=== PATIENT | male | born 1945 | race Caucasian/White ===

== ENCOUNTER 2021-03-10 19:10 | Emergency (ER) | payer BC, MEDICARE ==
[2021-03-10] MEDS ORDERED: Sodium Chloride 0.9% 10 ML Syringe FLUSH PRN (19:47)
[2021-03-10] MEDS ORDERED: Albuterol/Ipratropium 3.0-0.5 MG/3 ML Neb Soln NEB ONE (19:48)
[2021-03-10] MEDS ORDERED: methylPREDNISolone Sodium Succinate 125 MG/2 ML SDV IVPUSH ONE (19:49)
--- NOTE | 2021-03-10 19:55 | EDM.PDOC ---
ED HPI GENERAL MEDICAL PROBLEM - General Chief Complaint: Respiratory Problem Stated Complaint: SOB Time Seen by Provider: 03/10/21 19:37 Source of Information: Reports: Patient History Limitations: Reports: No Limitations - History of Present Illness INITIAL COMMENTS - FREE TEXT/NARRATIVE: The patient presents with shortness of breath, cough and generalized weakness. This started a few days ago. He is traveling through to [place]. He stopped in town today and went to the [facility]. They did a CXR and started him on prednisone, amoxicillin, and doxycycline. They thought he had pneumonia. He got a call back that he did not have pneumonia. His CXR was officially read by their radiologist. He was in his hotel room and he was trying to sleep and his oxygen saturations went down to 83%. They did come up and when he came in they were 95% on room air. He has no fever, chills, cough, chest pain, abdominal pain, nausea or vomiting. He has a history of COPD and myasthenia gravis. The has been under control lately. He says at times he feels weak in his legs. He does have some edema in both legs lately. He was immunized for COVID. He will not do a nasal swab for COVID. Onset: Gradual Duration: Day(s): Severity: Moderate Improves with: Reports: None Worsens with: Reports: None Associated Symptoms: Reports: Shortness of Breath. Denies: Chest Pain, Cough, Fever/Chills, Headaches, Nausea/Vomiting - Related Data Allergies Allergy/AdvReac Type Severity Reaction Status Date / Time azithromycin Allergy Cannot Verified 03/10/21 22:28 [From Zithromax Z-Jacinto] Remember levofloxacin [From Levaquin] Allergy Cannot Verified 03/10/21 22:28 Remember ramipril Allergy Cannot Verified 03/10/21 22:28 Remember Sulfa (Sulfonamide Allergy Cannot Verified 03/10/21 22:28 Antibiotics) Remember ED ROS GENERAL - Review of Systems Review Of Systems: See Below Constitutional: Reports: Weakness. Denies: Fever, Chills HEENT: Reports: No Symptoms Respiratory: Reports: Shortness of Breath. Denies: Cough Cardiovascular: Reports: No Symptoms Endocrine: Reports: No Symptoms GI/Abdominal: Reports: No Symptoms : Reports: No Symptoms Musculoskeletal: Reports: No Symptoms ED EXAM, GENERAL - Physical Exam Exam: See Below Exam Limited By: No Limitations General Appearance: Alert, No Apparent Distress Ears: Normal External Exam Nose: Normal Inspection Head: Atraumatic, Normocephalic Neck: Normal Inspection Respiratory/Chest: No Respiratory Distress, Decreased Breath Sounds Cardiovascular: Regular Rate, Rhythm, No Murmur, Other (Edema in both lower legs) GI/Abdominal: Soft, Non-Tender, No Organomegaly, No Mass Back Exam: Normal Inspection Extremities: Other (Edema both legs) Neurological: Alert, Oriented, No Motor/Sensory Deficits #1 Interpretation EKG Date: 03/10/21 Time: 20:14 Rhythm: A-Fib Rate (Beats/Min): 80 [place]: LAD-Left [place] Deviation P-Wave: Absent QRS: Normal ST-T: Normal QT: Normal Course - Vital Signs Last Recorded V/S: Last Vital Signs Temp 96.8 F L 03/10/21 23:20 Pulse 57 L 03/10/21 23:20 Resp 16 03/10/21 23:20 BP 166/84 H 03/10/21 23:20 Pulse Ox 94 L 03/10/21 23:20 - Orders/Labs/Meds Orders: Active Orders 24 hr Category Date Time Status Cardiac Monitoring [RC] . DIRECTED Care 03/10/21 19:47 Active Peripheral IV Care [RC] . DIRECTED Care 03/10/21 19:48 Active RT Aerosol Therapy [RC] ASDIRECTED Care 03/10/21 19:49 Active Ang Chest [CT] Stat Exams 03/10/21 21:43 Taken Chest 1V Frontal [CR] Stat Exams 03/10/21 19:48 Taken Sodium Chloride 0.9% [Normal Saline] 100 ml Med 03/10/21 22:30 Active IV ASDIRECTED Sodium Chloride 0.9% [Saline Flush] Med 03/10/21 19:47 Active 10 ml FLUSH ASDIRECTED PRN Peripheral IV Insertion Adult [OM.PC] Stat Oth 03/10/21 19:47 Ordered Medication Orders Sodium Chloride (Normal Saline) 100 mls @ 60 mls/hr IV ASDIRECTED BRIAN Last Admin: 03/10/21 22:25 Dose: 60 mls/hr Documented by: SALMA Sodium Chloride (Sodium Chloride 0.9% 10 Ml Syringe) 10 ml FLUSH ASDIRECTED PRN PRN Reason: Keep Vein Open Last Admin: 03/10/21 21:45 Dose: 10 ml Documented by: LIZ Labs: Laboratory Tests 03/10/21 03/10/21 03/10/21 Range/Units 20:45 20:45 20:45 WBC 13.58 H (4.23-9.07) K/mm3 RBC 5.20 (4.63-6.08) M/mm3 Hgb 15.3 (13.7-17.5) gm/dl Hct 48.6 (40.1-51.0) % MCV 93.5 H (79.0-92.2) fl MCH 29.4 (25.7-32.2) pg MCHC 31.5 L (32.2-35.5) g/dl RDW Std Deviation 54.7 H (35.1-43.9) fL Plt Count 217 (163-337) K/mm3 MPV 9.3 L (9.4-12.3) fl Neut % (Auto) 86.2 H (34.0-67.9) % Lymph % (Auto) 5.7 L (21.8-53.1) % [place] % (Auto) 7.5 (5.3-12.2) % Eos % (Auto) 0.1 L (0.8-7.0) Baso % (Auto) 0.1 (0.1-1.2) % Neut # (Auto) 11.71 H (1.78-5.38) K/mm3 Lymph # (Auto) 0.77 L (1.32-3.57) K/mm3 [place] # (Auto) 1.02 H (0.30-0.82) K/mm3 Eos # (Auto) 0.02 L (0.04-0.54) K/mm3 Baso # (Auto) 0.01 (0.01-0.08) K/mm3 D-Dimer, Quantitative 0.64 H (0.19-0.50) mg/L Sodium 140 (136-145) mEq/L Potassium 4.4 (3.5-5.1) mEq/L Chloride 105 (98-107) mEq/L Carbon Dioxide 29 (21-32) mEq/L Anion Gap 10.4 (5-15) BUN 34 H (7-18) mg/dL Creatinine 1.6 H (0.7-1.3) mg/dL Est Cr Clr Drug Dosing 41.19 mL/min Estimated GFR (MDRD) 42 (>60) mL/min BUN/Creatinine Ratio 21.3 H (14-18) Glucose 115 H (70-99) mg/dL Calcium 8.6 (8.5-10.1) mg/dL Total Bilirubin 0.7 (0.2-1.0) mg/dL AST 23 (15-37) U/L ALT 46 (16-63) U/L Alkaline Phosphatase 65 (46-116) U/L Troponin I < 0.017 (0.00-0.056) ng/mL NT-Pro-B Natriuret Pep (0-450) pg/mL Total Protein 6.8 (6.4-8.2) g/dl Albumin 3.4 (3.4-5.0) g/dl Globulin 3.4 gm/dL Albumin/Globulin Ratio 1.0 (1-2) 03/10/21 Range/Units 20:45 WBC (4.23-9.07) K/mm3 RBC (4.63-6.08) M/mm3 Hgb (13.7-17.5) gm/dl Hct (40.1-51.0) % MCV (79.0-92.2) fl MCH (25.7-32.2) pg MCHC (32.2-35.5) g/dl RDW Std Deviation (35.1-43.9) fL Plt Count (163-337) K/mm3 MPV (9.4-12.3) fl Neut % (Auto) (34.0-67.9) % Lymph % (Auto) (21.8-53.1) % [place] % (Auto) (5.3-12.2) % Eos % (Auto) (0.8-7.0) Baso % (Auto) (0.1-1.2) % Neut # (Auto) (1.78-5.38) K/mm3 Lymph # (Auto) (1.32-3.57) K/mm3 [place] # (Auto) (0.30-0.82) K/mm3 Eos # (Auto) (0.04-0.54) K/mm3 Baso # (Auto) (0.01-0.08) K/mm3 D-Dimer, Quantitative (0.19-0.50) mg/L Sodium (136-145) mEq/L Potassium (3.5-5.1) mEq/L Chloride (98-107) mEq/L Carbon Dioxide (21-32) mEq/L Anion Gap (5-15) BUN (7-18) mg/dL Creatinine (0.7-1.3) mg/dL Est Cr Clr Drug Dosing mL/min Estimated GFR (MDRD) (>60) mL/min BUN/Creatinine Ratio (14-18) Glucose (70-99) mg/dL Calcium (8.5-10.1) mg/dL Total Bilirubin (0.2-1.0) mg/dL AST (15-37) U/L ALT (16-63) U/L Alkaline Phosphatase (46-116) U/L Troponin I (0.00-0.056) ng/mL NT-Pro-B Natriuret Pep 563 H (0-450) pg/mL Total Protein (6.4-8.2) g/dl Albumin (3.4-5.0) g/dl Globulin gm/dL Albumin/Globulin Ratio (1-2) Meds: Medications Generic Name Dose Route Start Last Admin Trade Name Freq PRN Reason Stop Dose Admin Sodium Chloride 100 mls @ 60 mls/hr 03/10/21 22:30 03/10/21 22:25 Normal Saline IV 60 mls/hr ASDIRECTED BRIAN Administration Sodium Chloride 10 ml 03/10/21 19:47 03/10/21 21:45 Sodium Chloride 0.9% 10 Ml Syringe FLUSH 10 ml ASDIRECTED PRN Administration Keep Vein Open Discontinued Medications Generic Name Dose Route Start Last Admin Trade Name Freq PRN Reason Stop Dose Admin Albuterol/Ipratropium 3 ml 03/10/21 19:48 03/10/21 20:27 Albuterol/Ipratropium 3.0-0.5 Mg/3 Ml Neb Soln NEB 03/10/21 19:49 3 ml ONETIME ONE Administration Furosemide 40 mg 03/10/21 21:19 03/10/21 21:43 Furosemide 40 Mg/4 Ml Vial IVPUSH 03/10/21 21:20 40 mg NOW ONE Administration Iopamidol 100 ml 03/10/21 22:21 03/10/21 22:25 Iopamidol 755 Mg/Ml 100 Ml Bottle IVPUSH 03/10/21 22:22 100 ml ONETIME ONE Administration Methylprednisolone Sodium Succinate 125 mg 03/10/21 19:49 Methylprednisolone Sodium Succinate 125 Mg/2 Ml Sdv IVPUSH 03/10/21 19:50 ONETIME ONE Sodium Chloride 10 ml 03/10/21 22:21 03/10/21 22:25 Sodium Chloride 0.9% 10 Ml Syringe FLUSH 03/10/21 22:22 10 ml ONETIME ONE Administration - Re-Assessments/Exams Free Text/Narrative Re-Assessment/Exam: 03/10/21 19:58 I ordered an EKG, CXR, IV saline lock, solu-medrol 125mg IV, duoneb, and labs. 03/10/21 23:27 His EKG shows atrial fibrillation with no acute changes. He has a history of A- fib and was on a blood thinner but he came off of it. His WBC was elevated at 13.58. His D-dimer is elevated at 0.64. His creatinine was elevated at 1.6. His troponin is negative. His BNP was elevated at 563. I gave some lasix 40mg IV. The CT shows no evidence for acute pulmonary embolic disease. 6mm left upper lobe pulmonary nodule. Irregular soft tissue attenuation nodule in the right upper lobe. He is aware of the nodules. He has a COPD exacerbation. I will discharge him home and keep on the prednisone. Departure - Departure Time of Disposition: 23:35 Disposition: Home, Self-Care 01 Condition: Good Clinical Impression: COPD (chronic obstructive pulmonary disease) Qualifiers: COPD type: unspecified COPD Qualified Code(s): J44.9 - Chronic obstructive pulmonary disease, unspecified - Discharge Information *PRESCRIPTION DRUG MONITORING PROGRAM REVIEWED*: Not Applicable *COPY OF PRESCRIPTION DRUG MONITORING REPORT IN PATIENT ANGIE: Not Applicable Referrals: PCP,Not In Area [Primary Care Provider] - Forms: ED Department Discharge Additional Instructions: Continue with the prednisone and the treatments. Please return if you are worse. Follow up with your doctor within a week. Sepsis Event Note (ED) - Evaluation Sepsis Screening Result: No Definite Risk - Focused Exam Vital Signs: Vital Signs Temp Pulse Resp BP Pulse Ox Pulse Ox 03/10/21 23:20 96.8 F L 57 L 16 166/84 H 94 L 03/10/21 19:49 95 03/10/21 19:30 97.0 F 87 20 136/87 95 - My Orders Last 24 Hours: My Active Orders 03/10/21 19:47 Cardiac Monitoring [RC] . DIRECTED Sodium Chloride 0.9% [Saline Flush] 10 ml FLUSH ASDIRECTED PRN Peripheral IV Insertion Adult [OM.PC] Stat 03/10/21 19:48 Peripheral IV Care [RC] . DIRECTED Chest 1V Frontal [CR] Stat 03/10/21 19:49 RT Aerosol Therapy [RC] ASDIRECTED 03/10/21 21:43 Ang Chest [CT] Stat 03/10/21 22:30 Sodium Chloride 0.9% [Normal Saline] 100 ml IV ASDIRECTED - Assessment/Plan Last 24 Hours: My Active Orders 03/10/21 19:47 Cardiac Monitoring [RC] . DIRECTED Sodium Chloride 0.9% [Saline Flush] 10 ml FLUSH ASDIRECTED PRN Peripheral IV Insertion Adult [OM.PC] Stat 03/10/21 19:48 Peripheral IV Care [RC] . DIRECTED Chest 1V Frontal [CR] Stat 03/10/21 19:49 RT Aerosol Therapy [RC] ASDIRECTED 03/10/21 21:43 Ang Chest [CT] Stat 03/10/21 22:30 Sodium Chloride 0.9% [Normal Saline] 100 ml IV ASDIRECTED
[2021-03-10] MEDS ORDERED: Furosemide 40 MG/4 ML VIAL IVPUSH ONE (21:19)
[2021-03-10] MEDS ORDERED: Sodium Chloride 0.9% 10 ML Syringe FLUSH ONE (22:21)
[2021-03-10] MEDS ORDERED: Iopamidol 755 Mg/ML 100 ML Bottle IVPUSH ONE (22:21)
[2021-03-10] MEDS ORDERED: Sodium Chloride 0.9% 100 ML IV SCH (22:30)
[2021-03-11] MEDS ORDERED: Albuterol/Ipratropium 3.0-0.5 MG/3 ML Neb Soln NEB ONE (06:09)
--- NOTE | 2021-03-11 06:49 | CR ---
Chest: Frontal view of the chest was obtained utilizing portable technique. Comparison: No prior chest imaging is available. Heart is enlarged. Lung markings are slightly increased which is most likely chronic. Parenchymal density is noted within the right upper chest which is described on subsequent chest CT. No discrete pleural effusions are seen. Bony structures show scattered disc space narrowing within the spine. No acute osseous finding is seen. Impression: 1. Cardiomegaly. 2. Slight increased lung markings most likely chronic. 3. Nodular density within the right upper chest. This has been described on subsequent chest CT. Diagnostic code #3
--- NOTE | 2021-03-11 07:27 | CT ---
CT chest Technique: Multiple axial sections were obtained from above the lung apices inferiorly through the lung bases. Intravenous contrast was utilized. Study has been performed as a pulmonary angiogram protocol. Comparison: No prior chest CT study is available, prior chest x-ray performed earlier on the same day (7:59 PM). Findings: Heart is enlarged. Atherosclerotic change is partially seen within the coronary arteries. Numerous cysts are seen within both kidneys. Calcified granulomas are noted within the spleen. Thoracic aorta shows diffuse atherosclerotic change with no aneurysm. Scattered mediastinal lymph nodes are seen and believed to be within normal limits. Pulmonary arteries are well opacified. No filling defects are appreciated to indicate pulmonary embolism. Lung window settings were reviewed. Small nodule is noted within the left upper chest measuring 6 mm. Parenchymal density is noted within the right upper chest which abuts the apical pleura. This has a nodular appearance and has measurements of 2.3 cm x 1.2 cm. Emphysematous changes are seen within both lungs. Slight parenchymal density is noted within the lingula most likely representing fibrosis. No acute parenchymal change is otherwise seen. Bone window settings were reviewed which show mild scattered degenerative change within the thoracic spine. No definite acute bony abnormality is appreciated. Impression: 1. Cardiomegaly. 2. Numerous cysts throughout both visualized kidneys. 3. Diffuse emphysematous change. 4. 6 mm nodule within the left upper chest. Nodular mass within the right upper chest with measurements up to 2.3 cm. Difficult to exclude neoplasm. Please correlate if any old chest imaging is available to determine stability. PET/CT could otherwise be obtained. 5. No findings of pulmonary embolism. Diagnostic code #9 I agree with preliminary report from [facility], finalized on 03/11/21, 12:13 AM CDT, code 1
== END 2021-03-11 06:40 | disposition home or self-care (01) ==
LOC: JD.ED 19:10
DX: J44.9 Chronic obstructive pulmonary disease, unspecified (principal); Z88.1 Allergy status to other antibiotic agents; Z88.8 Allergy status to other drugs, medicaments and biological substances; Z88.2 Allergy status to sulfonamides
CPT/HCPCS: 36415; 71045; 71275; 80053; 83880; 84484; 85025; 85379; 93005; 94640; 96374; 99285; J1940; Q9967; J7620-GY